=== PATIENT | female | born 1980 | race Caucasian/White ===

== ENCOUNTER → 2017-04-24 | Outpatient (CLI) | payer OTHER ==
[~2017-04-24] MED LIST: ASCO100C2 PO; ATR10 PO; MULT1TAB PO; ONDA8TAB13 SL; RIZA10TA18 PO; VALA1TAB PO
== END | disposition home or self-care (01) ==
LOC: C.PAPS 11:22
PROVIDERS: ATTEND Physician Assistant
DX: Z01.419 Encounter for gynecological examination (general) (routine) without abnormal findings (principal); Z11.51 Encounter for screening for human papillomavirus (HPV)

== ENCOUNTER → 2018-05-01 | Outpatient (CLI) | payer OTHER | END | disposition home or self-care (01) | LOC: C.PAPS 15:41 | PROVIDERS: ATTEND Obstetrics & Gynecology | DX: Z12.4 Encounter for screening for malignant neoplasm of cervix (principal) ==

== ENCOUNTER 2019-03-17 11:34 | Inpatient (IN) ==
[2019-03-17] MEDS ORDERED: OXYTOCIN 30 UNITS/500 ML BAG IV PRN (11:43)
[2019-03-17] MEDS ORDERED: PENICILLIN G POTASSIUM 6 MU in DEXTROSE 5% 250 ML IV ONE (12:15)
[2019-03-17 12:25] LABS: Hemoglobin 13.8 g/dL (12.0-16.0); Mean Platelet Volume 11.3 fL (7.4-10.4); Platelet Count 211 K/uL (130-400); RDW Coefficient of Variation 13.4 % (11.5-14.5); RDW Standard Deviation 43.7 fL (36.4-46.3); Red Blood Count 4.38 M/uL (4.2-5.4); White Blood Count 14.52 K/uL (4.8-10.8)
[2019-03-17] MEDS: LACTATED RINGER'S 1,000 ML IV PRN ×2 (12:36→23:00)
[2019-03-17 12:51] LABS: Mean Corpuscular Hgb Conc 35.4 g/dL (32-36)
[2019-03-17 13:05] LABS: Amphetamines+Metham, Urine Neg (Neg); Barbiturates, Urine Neg (Neg); Benzodiazepine, Urine Neg (Neg); Cocaine, Urine Neg (Neg); MDMA (Ecstacy), Urine Neg (Neg); Methadone, Urine Neg (Neg); Opiate, Urine Neg (Neg); Phencyclidine, Urine Neg (Neg)
--- NOTE | 2019-03-17 13:29 | History & Physical Report ---
Date of Service March 17, 2019 Assessment & Plan (1) Rupture of membranes with clear amniotic fluid: Christaino Hanks is a 38-year-old who presents at 39+4 with rupture of membranes, nitrazine and ferning positive at outpatient office. �GBS negative, B+, VDRL/RPR nonreactive, HIV negative �She currently is on Subutex. Also takes Valtrex as needed �Had an abnormal quad screen during with normal follow-up testing and negative panorama �She is not having contractions yet �Membranes ruptured greater than 24 hours ago �Admit for PROM. Penicillin 6,000,000 units once now, 3,000,000 units every 4 hours. �She has a rash reaction to cephalosporins (cefadroxil), has reportedly maikel ated amoxicillin well in the past �Cervical ripening with misoprostol 50 mcg by mouth every 4 hours �N.p.o. �LR 125 cc/h �Continue routine care (2) with 39 completed weeks gestation: History of Present Illness Chief Complaint: Rupture of membranes Primary Care Provider: Bhargav Awan MD Christiano Hanks is a 38yo who presents at 39+4 with leakage of fluid. She reports she was in her usual state of health until yesterday morning when she went to the bathroom and noticed that she was leaking small amounts of clear fluid into her panty liner. This fluid was persistent and increased over the next day, and this morning she was concerned when she continued to drip clear fluid with a slightly increased volume. She did not have any vaginal bleeding or contractions. She is continued to feel good movement, and is not co ncerned about movement. She presented to the outpatient office where she was noted to be nitrazine positive with ferning and was referred to L&D. She has not eaten today. 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 She also has a medical history of hemorrhoids worsened by , and IBS which improved with . She denies other medical history, and notes that her has been uncomplicated. She has no history of asthma, hypertension, gestational or pre- gestational diabetes, at time of conception she was on methadone. At the end of her second trimester into third she transitioned to Subutex out of concern for prolonged JOHNNY. She is currently on Suboxone 2 mg and last took a dose this morning. She is blood type B+, RPR/GERD L nonreactive, GBS negative, hepatitis B negative, HIV negative She is a daily smoker of about 10-12 cigarettes/day. She does not drink alcohol. No other recreational drug use or substance use. Medications: Other than Subutex noted above she takes a vitamin daily, and Tylenol as needed. S she takes Valtrex as indicated for oral herpes simplex. She has used various migraine abortives in the past, which she does not remember the name of today, but notes she has not used these during . Denies other medications. Surgical history: She is a past medical history of LEEP & laser ablation 2/2 an abnormal Pap, wisdom teeth extraction, and tonsillectomy. Denies other surgical history. Social history: She lives with her fianc�. Feels safe in the home area has running water, electricity, heat. She is seen at bedside with her mother present, her fianc� will be joining in a few hours. planning: She would like an epidural. No plans for cord blood donation. Allergies Allergy/AdvReac Type Severity Reaction Status Date / Time cefadroxil Allergy Intermediate RASH Unverified 05/04/15 11:35 Cephalosporins Allergy Intermediate RASH Unverified 05/04/15 11:35 Home Medications Home Medications Medication Instructions Recorded Confirmed Type buprenorphine-naloxone 2 tab SUBLINGUAL DAILY 03/17/19 03/17/19 History vit-iron fum-folic ac 1 tab PO DAILY 03/17/19 03/17/19 History [ Vitamin] valacyclovir [Valtrex] 500 mg PO BID 03/17/19 03/17/19 History Patient History Medical History H/O wisdom tooth extraction History of IBS Hx of migraines Surgical History H/O LEEP Family History Father Diabetes Cancer Stroke Grandmother (Paternal) Diabetes Grandmother (Maternal) Diabetes Aunt Stroke Uncle Stroke Social History Preferred Language: Persian Beliefs That Will Affect Care: None marital status: Single Current Living Situation: Significant Other Feels Safe at Home: Yes Safety Concerns: Feels Safe At This Time Smoking Status: Current every day smoker Tobacco Type: cigarettes Do You Dip or Chew Tobacco: No Hx Alcohol Use: No Hx Substance Use: Yes (not for 6 years) substance use type: heroin Review of Systems no fever, no chills, no body aches and no weakness no blind spots, not seeing flashes, no spots in vision and no worsening vision no ear pain, no dizziness, no nasal congestion, no nasal obstruction, no sinus pain/pressure, no sore throat and no dysphagia no cough, no chest congestion, no change in sputum, no dyspnea, no dyspnea on exertion, no pain on inspiration, no sputum production and no wheezing no chest pain, no chest pain at rest, no chest pain with activity, no dyspnea, no dyspnea at rest, no dyspnea on exertion, no orthopnea, no palpitations, no syncope, no edema (no new, mild ankle swelling with pregancy) and no calf pain + constipation (Occasional mild constipation); no abdominal pain, no belching, no nausea, no vomiting, no diarrhea/loose stools (History of IBS, no diarrhea with ) and no blood in stools no dysuria and no difficulty urinating no neck pain, no joint pain, no myalgia, no muscle weakness and no body aches no acne, no boil, no rash and no new lesions + headache(s) (Endorses a history of headaches, tension and migraine type, none today); no localized weakness, no loss of sensation, no tingling, no numbness, no paresthesia, no lack of coordination and no dizziness no confusion, no substance abuse and no problem reported Physical Exam Physical Exam: General: A&Ox3. NAD. Cooperative. HEENT: Atraumatic, normocephalic. Pulm: CTAB A&P. -wheezes, -rales, -rhonchi. Symmetrical chest rise. No increase work of breathing. No respiratory distress. Cardiac: RRR, -mrg. Radial pulses intact and symmetrical. Abdominal: Distention consistent with third trimester . Nontender. Extremities: Trace ankle edema. PT/DP pulses intact and symmetrical, radial pulse intact. Homans negative. No calf tenderness, asymmetry, warmth, or swelling. Neuro: Pupils equal and reactive to light bilaterally. Extraocular movements intact. Acuity grossly intact. No distal extremity paresthesia or numbness. Moving all extremities equally. 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 Biceps and patellar DTRs 2+ bilaterally. Results & Data Vital Signs (Past 12 Hours) Vital Signs Temp Pulse Resp BP 06/10/19 12:03 74 124/84 06/10/19 11:44 36.9 C 20 Monitoring External Monitor Category 2 tracing. Baseline approximately 135, moderate failure ability. Occasional variable deceleration noted. Accelerations present. Tocodynamometer No regular contractions noted at time of admission. Supervising Physician Co-Signing Physician Notes Resident Physician Supervision Note: I was present with Dr. Rivas during the history and exam. I discussed the case with the resident and agree with the findings and plan as documented in the note. Any exceptions or clarifications are listed here: 38-year-old 1 para 0 at 39+ weeks gestational age sent to labor and delivery from the office with rupture of membranes. From history patient probably ruptured 24 hours ago. Rupture of membranes documented in the office. Cervical examination by Dr. Hagen was closed and 70% effaced. Patient with a history of cephalosporin allergy, causing a rash. Patient's mother feels the patient has had amoxicillin in the past. Patient with a history of Subutex use during this . Urine drug screen will be checked. Cervical ripening initially with Cytotec 50 mcg p.o. every 4 hours as needed. All questions answered to the patient. Documented By: Jordan Ramirez Jr, MD, FACOG Resident Activity Tracking Resident Involvement: Resident Care Provided Care Provided: Adult Hospital Medicine
[2019-03-17] MEDS: miSOPROStol 50 MCG TAB PO PRN ×3 (14:01→22:08)
[2019-03-17] MEDS: PENICILLIN G POTASSIUM 3 MU in DEXTROSE 5% 100 ML IV PRN ×2 (16:16→20:10)
--- NOTE | 2019-03-17 22:27 | Labor Progress Brief Note ---
Date of Service March 17, 2019 Subjective very uncomfortable Assessment & Plan (1) Prolonged rupture of membranes, greater than 24 hours, delivered: - pt in early active labor - uncomfortable, will get epidural Physical Exam Genitourinary: OB Exam Monitor Tracing: + category I Cervix: 3/100/-1 Results & Data Vital Signs (Past 12 Hours) Vital Signs Temp Pulse Resp BP 03/17/19 22:07 84 139/78 03/17/19 21:10 36.6 C 18 03/17/19 19:11 60 114/78 03/17/19 19:10 36.6 C 16 03/17/19 18:16 36.6 C 20 03/17/19 16:17 61 104/75 03/17/19 15:13 68 109/75 03/17/19 12:03 74 124/84 03/17/19 12:02 36.9 C 20 03/17/19 11:44 36.9 C 20
[2019-03-17] MEDS ORDERED: BUPIVACAINE 0.25% 30 ML VIAL ONE (22:28)
[2019-03-17] MEDS ORDERED: ePHEDrine sulfate 50 MG/ML AMP ONE (22:28)
[2019-03-17] MEDS ORDERED: fentaNYL 2MCG/ML ROPIV 1.25MG/ML 100 ML BAG EPI ONE (22:29)
[2019-03-17] MEDS ORDERED: fentaNYL citrate 100 MCG/2 ML VIAL ONE (22:29)
--- NOTE | 2019-03-17 23:25 | Anesthesiology Consultation ---
Date of Service March 17, 2019 Assessment & Plan (1) Encounter for pre-operative examination: Chart Review Chart Review: Patient NOT seen in Pre Admission Testing and Acceptable Risk for Labor Epidural Consults Requested none ASA ASA2 Proposed Anesthesia Anesthesia Type: Labor Epidural History Height/Weight Height: 5 ft 2 in Weight: 79.379 kg Allergies Allergy/AdvReac Type Severity Reaction Status Date / Time cefadroxil Allergy Intermediate RASH Verified 03/17/19 16:27 Cephalosporins Allergy Intermediate RASH Verified 03/17/19 16:27 Medications Home Medications Medication Instructions Recorded Confirmed Last Taken buprenorphine-naloxone 2 tab SUBLINGUAL DAILY 03/17/19 03/17/19 03/17/19 05:30 1 vit-iron fum-folic ac 1 tab PO DAILY 03/17/19 03/17/19 03/16/19 09:00 [ Vitamin] 1 valacyclovir [Valtrex] 500 mg PO BID 03/17/19 03/17/19 03/03/19 06:00 2 Active Medications Generic Name Dose Route Start Last Admin Trade Name Freq PRN Reason Stop Dose Admin Lactated Ringer's 1,000 mls @ 125 mls/hr 03/17/19 12:00 03/17/19 23:00 Lr IV 03/19/19 11:59 125 mls/hr .Q8H PRN Administration L&D Protocol Protocol Penicillin G Potassium 3 mu/ 106 mls @ 100 mls/hr 03/17/19 11:43 03/17/19 20:10 Dextrose IV 03/27/19 11:42 100 mls/hr Q4H PRN Administration Give until delivery Past Medical History Medical History H/O wisdom tooth extraction History of IBS Hx of migraines Past Family History Family History Father Diabetes Cancer Stroke Grandmother (Paternal) Diabetes Grandmother (Maternal) Diabetes Aunt Stroke Uncle Stroke Past Surgical History Surgical History H/O LEEP Social History Smoking Status: Current every day smoker tobacco type: cigarettes Do You Dip or Chew Tobacco: No Hx Alcohol Use: No Hx Substance Use: Yes (not for 6 years) substance use type: heroin Physical Exam Vital Signs Last Vital Signs Temp 36.6 C 03/17/19 21:10 Pulse 71 03/17/19 23:23 Resp 18 03/17/19 21:10 BP 120/79 03/17/19 23:23 Pulse Ox 98 03/17/19 23:22
[2019-03-17] MEDS ORDERED: NALOXONE HCL 1 MG in SODIUM CHLORIDE 0.9% 1000ML 1,000 ML IV PRN (23:30)
[2019-03-17] MEDS ORDERED: ONDANSETRON INJ 2 MG/ML 2 ML VIAL IV PRN (23:30)
[2019-03-17] MEDS ORDERED: DiphenhydrAMINE HCL 50 MG/ML VIAL IV PRN (23:30)
[2019-03-17] MEDS ORDERED: NALOXONE HCL 0.4 MG/1 ML VIAL/CARP IV PRN (23:30)
[2019-03-17] MEDS ORDERED: ePHEDrine sulfate 50 MG/ML AMP IV PRN (23:30)
[2019-03-17] MEDS ORDERED: NALBUPHINE HCL INJ 10 MG/ML AMP IV PRN (23:30)
[2019-03-18] MEDS: PENICILLIN G POTASSIUM 3 MU in DEXTROSE 5% 100 ML IV PRN ×2 (00:10→04:07)
[2019-03-18] MEDS ORDERED: OXYTOCIN 30 UNITS/500 ML BAG IV PRN ×2 (01:50→07:20)
[2019-03-18] MEDS: fentaNYL 2MCG/ML ROPIV 1.25MG/ML 100 ML BAG EPI PRN ×2 (02:14→05:33)
[2019-03-18] MEDS ORDERED: Nursing to Pharmacy Communication ONE (02:24)
[2019-03-18] MEDS: LACTATED RINGER'S 1,000 ML IV PRN (03:21)
--- NOTE | 2019-03-18 04:52 | Obstetrical Progress Note ---
Date of Service March 18, 2019 Assessment & Plan (1) Supervision of elderly primigravida in third trimester: - tracing Cat II, some variable decels with ctx's, but good variability and accels - pt feeling pressure with ctx's - baby directly OP, unable to manually rotate - will begin 2nd stage Subjective feel pressure Physical Exam Genitourinary: OB Exam Monitor Tracing: + category II Cervix: Complete?(+)1-(+)2/OP Results & Data Vital Signs (Past 12 Hours) Vital Signs Temp Pulse Resp BP Pulse Ox 03/18/19 04:42 92 H 100 03/18/19 04:37 73 97 03/18/19 04:32 73 97 03/18/19 04:27 96 H 99 03/18/19 04:22 84 99 03/18/19 04:18 77 116/58 L 03/18/19 04:17 79 100 03/18/19 04:12 67 100 03/18/19 04:07 70 100 03/18/19 04:02 88 100 03/18/19 03:57 63 100 03/18/19 03:52 74 100 03/18/19 03:48 96 H 93 03/18/19 03:47 88 95 03/18/19 03:42 88 99 03/18/19 03:41 86 92 03/18/19 03:37 67 96 03/18/19 03:36 91 H 92 03/18/19 03:32 63 96 03/18/19 03:27 84 95 03/18/19 03:22 63 96 03/18/19 03:18 63 109/58 L 03/18/19 03:17 64 96 03/18/19 03:12 81 99 03/18/19 03:07 71 97 03/18/19 03:02 68 98 03/18/19 03:00 36.9 C 03/18/19 02:57 71 99 03/18/19 02:52 71 98 03/18/19 02:47 83 96 03/18/19 02:42 68 98 03/18/19 02:37 69 98 03/18/19 02:32 68 97 03/18/19 02:30 87 94 03/18/19 02:27 72 97 03/18/19 02:22 68 99 03/18/19 02:19 70 124/63 03/18/19 02:17 85 97 03/18/19 02:12 81 100 03/18/19 02:09 70 119/78 03/18/19 02:07 66 96 03/18/19 02:02 69 98 03/18/19 02:00 84 93 03/18/19 01:57 63 97 03/18/19 01:53 76 93 03/18/19 01:52 78 96 03/18/19 01:47 80 99 03/18/19 01:42 69 97 03/18/19 01:38 78 94 03/18/19 01:37 76 97 03/18/19 01:32 66 98 03/18/19 01:27 70 99 03/18/19 01:26 80 94 03/18/19 01:24 64 102/58 L 03/18/19 01:22 72 98 03/18/19 01:17 67 98 03/18/19 01:12 71 99 03/18/19 01:07 85 99 03/18/19 01:02 36.8 C 84 96 03/18/19 00:57 70 98 03/18/19 00:56 75 128/91 03/18/19 00:55 16 03/18/19 00:52 84 99 03/18/19 00:47 85 98 03/18/19 00:42 66 97 03/18/19 00:40 61 118/70 03/18/19 00:37 70 99 03/18/19 00:36 84 93 03/18/19 00:32 68 99 03/18/19 00:27 69 98 03/18/19 00:23 66 123/63 03/18/19 00:22 73 100 03/18/19 00:17 77 97 03/18/19 00:12 66 99 03/18/19 00:11 83 16 128/70 03/18/19 00:07 79 100 03/18/19 00:02 78 100 03/17/19 23:57 68 99 03/17/19 23:54 63 117/67 03/17/19 23:52 66 100 03/17/19 23:47 68 99 03/17/19 23:42 83 99 03/17/19 23:41 71 131/61 03/17/19 23:37 64 99 03/17/19 23:32 70 99 03/17/19 23:27 83 97 03/17/19 23:23 71 120/79 03/17/19 23:22 75 98 03/17/19 23:19 68 110/75 03/17/19 23:18 36.7 C 18 03/17/19 23:17 70 98 03/17/19 23:13 84 133/68 03/17/19 23:12 87 99 03/17/19 23:08 75 144/71 H 03/17/19 23:07 81 97 03/17/19 23:03 81 107/72 03/17/19 23:02 80 98 03/17/19 22:57 68 98 03/17/19 22:52 72 98 03/17/19 22:47 84 99 03/17/19 22:42 70 98 03/17/19 22:37 71 99 03/17/19 22:07 84 139/78 03/17/19 21:10 36.6 C 18 03/17/19 19:11 60 114/78 03/17/19 19:10 36.6 C 16 03/17/19 18:16 36.6 C 20
[2019-03-18] MEDS ORDERED: ACETAMINOPHEN 500 MG TAB PO PRN (07:07)
[2019-03-18] MEDS: BUPRENORPHINE HCL 2 MG SUBL SL SCH (07:11)
[2019-03-18] MEDS ORDERED: BENZOCAINE 20% AER SPR 82.5 GM CAN EXT PRN (07:20)
[2019-03-18] MEDS ORDERED: HYDROCORTISONE ACETATE 25 MG SUPP PR PRN (07:20)
[2019-03-18] MEDS ORDERED: DIPHTHERIA/TETANUS/PERTUSSIS 0.5 ML SYR/VIAL IM ONE (07:20)
[2019-03-18] MEDS ORDERED: SUPERCREAM 0.870% 15 GM JAR EXT PRN (07:20)
[2019-03-18 07:36] LABS: Base Excess Cord Arterial Bld -8.6 mEq/L (-9-1.8); CO2 Cord Arterial Blood 61 mmHg (39.1-73.5); HCO3 Cord Arterial Blood 21 mmol/L (19.7-28.5); PO2 Cord Arterial Blood 28.7 % (4.1-31.7); pH Cord Arterial Blood 7.16 (7.1-7.38)
[2019-03-18 07:40] LABS: Base Excess Cord Venous Blood -4.9 mEq/L (-7.7-1.9); Cord Venous Blood HCO3 21 mmol/L (18.4-26.8); Cord Venous Blood PCO2 42 mmHg (30.4-57.2); Cord Venous Blood PO2 24 mmHg (14.1-43.3); Cord Venous Blood pH 7.32 (7.20-7.44)
[2019-03-18 07:41] LABS: O2 Saturation Cord Venous Bld < 60.0 % (<68)
--- NOTE | 2019-03-18 07:51 | Delivery Summary ---
DATE OF OPERATION: 03/18/2019 DELIVERY NOTE FINDINGS: Viable male with Apgars of 8 and 9. Baby delivered in OP presentation with nuchal cord x1. Cord gases, cord blood samples obtained. Placenta delivered spontaneously. Midline episiotomy repaired with 4-0 Vicryl in routine fashion. Her estimated blood loss was 300 mL. LABOR NOTE: The patient is a 38-year-old 1, para 0 with an EDC of 23 March at 39+ weeks gestational age, who presented to labor and delivery with rupture of membranes. The patient was seen in the office for her OB check and she had relayed at that point an episode of leaking fluid for approximately 24 hours. Examination in the office confirmed the diagnosis of rupture of membranes and the patient was sent to labor and delivery. The patient's course is remarkable for Subutex use. The patient had been on methadone, but was switched to Subutex during the . Laboratory values for the show a blood type of B positive, antibody negative, rubella immune, hepatitis B negative. She had normal 1-hour Glucola x2 and a negative third trimester beta strep culture. Upon admission, the patient's cervix was closed, 70% effaced and -2 station. Membranes were felt to be ruptured for greater than 24 hours and therefore penicillin was started 6 million unit loading dose, then 3 million units every 4 hours until delivery. Because of the unfavorable status of the cervix, the patient received Cytotec 50 mcg p.o. q. 4 hours to induce labor. The patient received 3 total dosages of Cytotec and began to contract in a regular fashion. The patient was uncomfortable, was found to be 3 cm dilated. Anesthesia was consulted and an epidural was placed. Following placement of the epidural, the patient's contractions spaced out. Pitocin augmentation was initiated, but the patient had decelerations with contractions and a 3-minute bradycardic episode and the Pitocin was discontinued. The patient continued to make progress out to full dilatation and began her second stage, with pushing, her contractions were every 7-8 minutes. The tracing was felt to be category 2, so Pitocin augmentation was reinitiated. The patient pushed for approximately 1 hour and delivered the baby in a direct OP presentation over a midline episiotomy. Nuchal cord x1 reduced on the perineum. Cord gases and cord blood samples obtained. Placenta was delivered spontaneously and sent for pathological evaluation. Midline episiotomy was repaired with 4-0 Vicryl in a routine fashion. Estimated blood loss 300 mL. Sponge and needle count was correct. I attest to the content of the Intraoperative Record and any orders documented therein. Any exception s are noted below.
[2019-03-18] MEDS: DOCUSATE SODIUM 100 MG CAP PO SCH ×2 (08:09→20:30)
[2019-03-18] MEDS: IBUPROFEN 600 MG TAB PO PRN ×3 (08:09→20:30)
[2019-03-18] MEDS: FERROUS SULFATE 325 MG TAB PO SCH (08:09)
[2019-03-18] MEDS: PRENATAL VITAMIN 1 TAB PO SCH (08:09)
--- NOTE | 2019-03-18 08:53 | Anesthesia Procedure Note ---
Date of Service March 18, 2019 Anesthesia Post Epidural Note Vital Signs Vital Signs: Temp Pulse Resp BP Pulse Ox 37.4 C 77 20 111/59 L 96 03/18/19 07:13 03/18/19 08:44 03/18/19 08:43 03/18/19 08:44 03/18/19 07:08 Pain Intensity Episiotomy/Laceration: Pain Intensity: 1 Notes Mental Status: alert / awake / arousable Patient Amnestic to Procedure: No Nausea / Vomiting: adequately controlled Pain: adequately controlled Airway Patency, RR, SpO2: stable & adequate BP & HR: stable & adequate Hydration State: stable & adequate Neuraxial Anesthesia: was administered and sensory block is resolving Anesthetic Complications: no major complications apparent and Pt Satisfied with anesthetic care Epidural: Removed without complications and With tip intact
[2019-03-18] MEDS ORDERED: BUPRENORPHINE HCL 2 MG SUBL SL SCH (09:00)
[2019-03-18] MEDS: NICOTINE 14 MG/24 HR PATCH TD SCH (10:52)
[2019-03-18] MEDS: ACETAMINOPHEN 325 MG TAB PO PRN (23:11)
[2019-03-19] MEDS: IBUPROFEN 600 MG TAB PO PRN ×4 (00:31→20:22)
[2019-03-19] MEDS: BUPRENORPHINE HCL 2 MG SUBL SL SCH (05:37)
--- NOTE | 2019-03-19 06:27 | Obstetrical Progress Note ---
Date of Service <Bhargav Rivas MD - Last Filed: 03/19/19 06:27> March 19, 2019 Assessment & Plan <Bhargav Rivas MD - Last Filed: 03/19/19 06:27> (1) Normal vaginal delivery: Christiano is a 38yo who presented at 39+4 now s/p over a midline episiotomy PPD#1 - Feels well today. Eating well, voiding well. Will work on ambulation, is not passing gas yet. - Pain well controlled with ibuprofen 600mg Q4H + APAP PRN. - On buprenorphine 2mg SL daily. Baby under observation by peds for signs of JOHNNY. - No problems with feeding - Routine care - After discharge will have [address] Ramirez. Subjective <Bhargav Rivas MD - Last Filed: 03/19/19 06:27> Ambulation: limited ambulation (has not ambulated much yesterday/today, plans to walk more today) Voiding: no voiding problems Passing Gas:: No Diet Tolerance:: regular diet Lochia:: Moderate Feeding Type:: breast feeding Current Pain Level(1-10): 2 Review of Systems Denies fever, chills, sweats Denies shortness of breath, difficulty breathing, chest pain, palpitations, chest pressure. Denies breast pain. Denies dysuria. Denies headache. Physical Exam <Bhargav Rivas MD - Last Filed: 03/19/19 06:27> General: Alert, oriented. No acute distress. Cardiac: Regular rate and rhythm, no murmurs/rubs/gallops. Respiratory: Clear to auscultation anterior and posteriorly, no wheezes/rales/rhonchi. No increased work of breathing. Symmetrical chest rise. No respiratory distress. Abdomen: Soft, nontender, nondistended. Bowel sounds present. Uterus: Uterine fundus firm, palpable 1cm below umbilicus. Lower Extremities: No lower extremity edema or swelling. No deep calf pain. Devin's negative bilaterally. Results & Data <Bhargav Rivas MD - Last Filed: 03/19/19 06:27> Vital Signs (Past 12 Hours) Vital Signs Temp Pulse Resp BP Pulse Ox 03/19/19 03:45 36.4 C L 64 16 102/62 100 03/19/19 00:25 36.5 C 64 18 107/71 99 03/18/19 20:35 36.5 C 67 16 117/80 <Easton Hagen MD, FACOG - Last Filed: 03/19/19 06:47> Co-Signing Physician Notes Resident Physician Supervision Note: I interviewed and examined the patient. Discussed with [Rob] and agree with findings and plan as documented in the note. Any exceptions or clarifications are listed here: [None] Documented By: Easton Hagen MD, FACOG Resident Activity Tracking <Bhargav Rivas MD - Last Filed: 03/19/19 06:27> Resident Involvement: Resident Care Provided Care Provided: Adult Hospital Medicine
[2019-03-19 06:31] LABS: Hematocrit (blood only) 33.1 % (37-47); Hemoglobin 11.4 g/dL (12.0-16.0); Mean Corpuscular Hgb Conc 34.4 g/dL (32-36); Mean Corpuscular Volume 90.7 fL (80-100); Mean Platelet Volume 11.5 fL (7.4-10.4); Platelet Count 154 K/uL (130-400); RDW Coefficient of Variation 13.5 % (11.5-14.5); RDW Standard Deviation 44.8 fL (36.4-46.3); Red Blood Count 3.65 M/uL (4.2-5.4); White Blood Count 16.91 K/uL (4.8-10.8)
[2019-03-19] MEDS: PRENATAL VITAMIN 1 TAB PO SCH (09:09)
[2019-03-19] MEDS: DOCUSATE SODIUM 100 MG CAP PO SCH ×2 (09:09→20:22)
[2019-03-19] MEDS: NICOTINE 14 MG/24 HR PATCH TD SCH (09:09)
[2019-03-19] MEDS: ACETAMINOPHEN 325 MG TAB PO PRN (09:09)
[2019-03-19] MEDS: FERROUS SULFATE 325 MG TAB PO SCH (09:09)
[2019-03-20] MEDS: IBUPROFEN 600 MG TAB PO PRN ×2 (01:52→08:04)
[2019-03-20] MEDS: BUPRENORPHINE HCL 2 MG SUBL SL SCH (05:38)
--- NOTE | 2019-03-20 06:28 | Obstetrical Progress Note ---
Date of Service <Bhargav Rivas MD - Last Filed: 03/20/19 06:28> March 20, 2019 Assessment & Plan <Bhargav Rivas MD - Last Filed: 03/20/19 06:28> (1) Normal vaginal delivery: Christiano is a 38yo who presented at 39+4 now s/p over a midline episiotomy PPD#2 - Feels well today. Eating well, voiding well. Will work on ambulation, is not passing gas yet. - Pain well controlled with ibuprofen 600mg Q4H + APAP PRN. - On buprenorphine 2mg SL daily. Baby under observation by peds for signs of JOHNNY. - No problems with feeding - Routine care - After discharge will have [address] Ramirez. Subjective <Bhargav Rivas MD - Last Filed: 03/20/19 06:28> Ambulation: ambulating normally Voiding: no voiding problems Passing Gas:: Yes Diet Tolerance:: regular diet Lochia:: Moderate Feeding Type:: breast feeding Current Pain Level(1-10): 0 Review of Systems Denies fever, chills, sweats Denies shortness of breath, difficulty breathing, chest pain, palpitations, chest pressure. Denies breast pain. Denies dysuria. Denies headache. Physical Exam <Bhargav Rivas MD - Last Filed: 03/20/19 06:28> General: Alert, oriented. No acute distress. Cardiac: Regular rate and rhythm, no murmurs/rubs/gallops. Respiratory: Clear to auscultation anterior and posteriorly, no wheezes/rales/rhonchi. No increased work of breathing. Symmetrical chest rise. No respiratory distress. Abdomen: Soft, nontender, nondistended. Bowel sounds present. Uterus: Uterine fundus firm, palpable 2cm below umbilicus. Lower Extremities: No lower extremity edema or swelling. No deep calf pain. Devin's negative bilaterally. Results & Data <Bhargav Rivas MD - Last Filed: 03/20/19 06:28> Vital Signs (Past 12 Hours) Vital Signs Temp Pulse Resp BP 03/19/19 23:10 36.6 C 59 L 18 122/81 03/19/19 20:15 36.4 C L 64 18 122/76 <Efren Causey MD - Last Filed: 03/26/19 09:30> Co-Signing Physician Notes Patient evaluated and agree with the above findings and plan Resident Activity Tracking <Bhargav Rivas MD - Last Filed: 03/20/19 06:28> Resident Involvement: Resident Care Provided Care Provided: Adult Hospital Medicine
[2019-03-20 07:19] LABS: Hematocrit (blood only) 33.1 % (37-47); Hemoglobin 11.4 g/dL (12.0-16.0)
[2019-03-20] MEDS: PRENATAL VITAMIN 1 TAB PO SCH (08:04)
[2019-03-20] MEDS: FERROUS SULFATE 325 MG TAB PO SCH (08:04)
[2019-03-20] MEDS: DOCUSATE SODIUM 100 MG CAP PO SCH (08:04)
[2019-03-20] MEDS: NICOTINE 14 MG/24 HR PATCH TD SCH (08:08)
== END 2019-03-20 13:55 | disposition home or self-care (01) | DRG 807 ==
LOC: OPB 11:34 → 4S1 11:35 → 4S2 03-18 09:55
DX: O69.81X0 Labor and delivery complicated by cord around neck, without compression, not applicable or unspecified; Z3A.39 39 weeks gestation of pregnancy; Z37.0 Single live birth

== ENCOUNTER 2020-09-03 01:20 | Inpatient (IN) ==
[2020-09-03] MEDS ORDERED: OXYTOCIN 10 UNITS/ML VIAL ONE (01:29)
[2020-09-03] MEDS ORDERED: LACTATED RINGER'S 1,000 ML IV PRN (01:33)
[2020-09-03] MEDS ORDERED: OXYTOCIN 30 UNITS/500 ML BAG IV PRN ×2 (01:33→02:12)
[2020-09-03] MEDS ORDERED: OXYTOCIN 30 UNITS/500ML NSS ONE (01:37)
[2020-09-03] MEDS ORDERED: LIDOCAINE/EPINEPHRINE 1% 20 ML VIAL ONE (01:42)
[2020-09-03] MEDS ORDERED: LIDOCAINE HCL 1% 20 ML VIAL ONE ×3 (01:42→03:36)
[2020-09-03] MEDS ORDERED: LIDOCAINE HCL 1% MPF 5 ML VIAL ONE ×2 (01:43→03:33)
[2020-09-03] MEDS ORDERED: BUTORPHANOL TARTRATE 1 MG/ML VIAL ONE (01:44)
[2020-09-03 01:59] LABS: Hemoglobin 13.5 g/dL (12.0-16.0); Mean Corpuscular Hgb Conc 32.9 g/dL (32-36); Mean Corpuscular Volume 91.1 fL (80-100); Mean Platelet Volume 12.3 fL (7.4-10.4); Platelet Count 228 K/uL (130-400); RDW Coefficient of Variation 13.2 % (11.5-14.5); RDW Standard Deviation 43.4 fL (36.4-46.3); White Blood Count 18.78 K/uL (4.8-10.8)
[2020-09-03] MEDS ORDERED: ACETAMINOPHEN 325 MG TAB PO PRN (02:12)
[2020-09-03] MEDS ORDERED: OXYTOCIN 20 UNITS in LACTATED RINGER'S 1,000 ML IV SCH (02:15)
[2020-09-03] MEDS ORDERED: IBUPROFEN 600 MG TAB PO ONE (02:26)
[2020-09-03] MEDS ORDERED: BUTORPHANOL TARTRATE 1 MG/ML VIAL IV STA (02:26)
--- NOTE | 2020-09-03 02:26 | Delivery Summary ---
Vaginal Delivery Summary Date of Service September 03, 2020 40yo at 40+wks rickie presented to L&D in active labor and on arrival was completely dilated. She went on to push and deliver via in bed, with nurse in attendance. Viable female, Apgars 8,9, nursing noting a loose nuchal cord at time of delivery. On my arrival the baby was at the radiant warmer and the placenta was not delivered. Cord blood had been obtained and iv team was in the room placing an IV under guidance. Patient was feeling cramping. With traction placenta delivered spontaneously and intact. IM pitocin administered. Lacerations noted and local anesthesia 1% lidocaine administered. Patient requested and received dose of stadol for pain management. Second degree laceration repaired in usual fashion with 3-0 vicryl. Bilateral labial lacerations repaired with interrupted sutures of 3-0 vicryl . Cervix and sulci intact. Uterine tone excellent and dilute pitocin infusing. Hemostasis adequate. EBL 400cc. Mother and baby stable in recovery. Of note course complicated by AMA. GBS negative. Covid test pending. Will do rapid swab now. [facility] Vaginal Delivery Charge Vaginal Delivery Codes: 29317 global code for the antepartum, delivery, and post-
[2020-09-03] MEDS ORDERED: OXYTOCIN 10 UNITS/ML VIAL IM ONE (02:28)
[2020-09-03] MEDS ORDERED: BENZOCAINE 20% AER SPR 82.5 GM CAN EXT PRN (02:28)
[2020-09-03] MEDS ORDERED: DIPHTHERIA/TETANUS/PERTUSSIS 0.5 ML SYR/VIAL IM ONE (02:28)
[2020-09-03] MEDS ORDERED: SUPERCREAM 0.870% 15 GM JAR EXT PRN (02:28)
[2020-09-03] MEDS ORDERED: HYDROCORTISONE ACETATE 25 MG SUPP PR PRN (02:28)
[2020-09-03] MEDS: IBUPROFEN 600 MG TAB PO PRN ×4 (06:28→23:44)
[2020-09-03] MEDS: oxyCODONE/ACETAMINOPHEN 5mg/325mg TAB PO PRN ×2 (07:41→14:46)
[2020-09-03] MEDS: DOCUSATE SODIUM 100 MG CAP PO SCH ×2 (07:41→20:10)
[2020-09-04] MEDS: IBUPROFEN 600 MG TAB PO PRN ×2 (03:22→08:37)
--- NOTE | 2020-09-04 07:17 | Obstetrical Progress Note ---
Date of Service September 04, 2020 Assessment & Plan (1) state: Recovering normally from vaginal delivery. Desires D/C today. instructions reviewed. Subjective Ambulation: ambulating normally Voiding: no voiding problems Passing Gas:: Yes Diet Tolerance:: regular diet Lochia:: Small Feeding Type:: breast feeding Physical Exam Constitutional WD/WN, vitals as above Eyes PERRL, conjunctivae normal, anicteric sclerae Neck normal visual inspection Respiratory normal respiratory effort and able to speak in complete sentences; no respiratory distress and no labored breathing Cardiovascular Rate/Rhythm: regular rate and regular rhythm Extremities: no edema Chest (Breasts) Chest: normal inspection of chest Gastrointestinal (Abdomen) Inspection/Auscultation: abdomen normal to inspection Soft, postgravid Psychiatric A+Ox3, euthymic affect Genitourinary OB Exam Abdomen: + fundal height Fundus: + firm and + relation to umbilicus (fundus just below umbilicus); not tender Results & Data (MN) Vital Signs (Past 12 Hours) Vital Signs Temp Pulse Resp BP Pulse Ox 09/03/20 23:30 97.7 F 69 20 122/74 97 09/03/20 20:15 98.2 F 71 18 114/77
[2020-09-04 07:20] LABS: Hematocrit (blood only) 33.1 % (37-47); Hemoglobin 10.9 g/dL (12.0-16.0)
[2020-09-04] MEDS: DOCUSATE SODIUM 100 MG CAP PO SCH (08:37)
== END 2020-09-04 13:45 | disposition home or self-care (01) | DRG 807 ==
LOC: OPB 01:20 → 4S1 01:22 → 4S2 04:50